=== PATIENT | female | born 2005 | race Asian ===

== ENCOUNTER 2025-04-17 23:50 | Emergency (ER) | payer OTHER ==
[~2025-04-17] VITALS: Ht 149.9 cm; Wt 56.8 kg
[2025-04-17 23:54] VITALS: TEMP 98.2
[2025-04-18 00:32] LABS: CALCIUM, TOTAL 8.8 mg/dL (8.8-10.5); CREATININE 0.80 mg/dL (0.60-1.30); GLOMERULAR FILTR. RATE CALC > 60 mL/min (>60); GLUCOSE,RANDOM 117 mg/dL (70-110); SODIUM SERUM 137 mmol/L (136-145); UREA NITROGEN, BLOOD 13 mg/dL (7-18)
[2025-04-18 00:40] LABS: PLATELET COUNT (AUTO) 271 K/uL (150-450); RED BLOOD CELL COUNT(AUTO) 5.14 MIL/uL (4.00-5.20); RED CELL DISTRIBUTION WIDTH 12.6 % (11.5-14.5); WHITE BLOOD COUNT (AUTO) 27.2 K/uL (4.5-11.0)
[2025-04-18 00:44] LABS: HCG,QUANTITATIVE < 1 mIU/mL (0-6)
[2025-04-18 00:44] LABS: APPEARANCE,URINE HAZY (CLEAR); GLUCOSE, URINE (UA) NEGATIVE (NEGATIVE); LEUKOCYTE ESTERASE ,URINE MODERATE (NEGATIVE); NITRATE,URINE NEGATIVE (NEGATIVE); OCCULT BLOOD,URINE NEGATIVE (NEGATIVE); SPECIFIC GRAVITIY, URINE 1.021 (1.003-1.030)
[2025-04-18 00:52] LABS: SQUAMOUS EPITHELIAL CELL,UR Few /LPF (None Seen)
[2025-04-18 04:24] LABS: ASPARTATE AMINOTRANSFERASE 14.0 U/L (15-37); TOTAL PROTEIN, SERUM 7.0 g/dL (6.4-8.2)
[2025-04-18] MEDS ORDERED: IOHEXOL 300 MG/ML 100 ML VIAL ONE (04:30)
[2025-04-18] MEDS: ONDANSETRON HCL 4 MG/2 ML VIAL IVP ONE (04:31)
[2025-04-18] MEDS: SODIUM CHLORIDE 0.9% 1,000 ML IV ONE (04:31)
[2025-04-18] MEDS: KETOROLAC TROMETHAMINE 30 MG/ML VIAL IVP ONE (04:31)
[2025-04-18] MEDS ORDERED: ONDA-104 PO (04:46)
[2025-04-18 06:33] VITALS: BP 95/60; PULSE 85; RESP 16; O2SAT 99
== END 2025-04-18 06:54 | disposition home or self-care (01) ==
LOC: EMS 23:53
DX: K52.9 Noninfective gastroenteritis and colitis, unspecified (principal); J45.909 Unspecified asthma, uncomplicated; R11.2 Nausea with vomiting, unspecified; Z87.891 Personal history of nicotine dependence
CPT/HCPCS: 99285; 80048; 80076; 81001; 83690; 84702; 85025; 36415; 74177; 96374; 96361; 96375; J1885; J2405; J7030; Q9967